=== PATIENT | male | born 1970 | race Caucasian/White ===

== ENCOUNTER → 2021-02-02 16:17 | Outpatient (CLI) | payer OTHER, SELFPAY ==
--- NOTE | 2021-02-02 | DI.RAD.S_ITS ---
PROCEDURE: XR KNEE LT 3V INDICATIONS: Left Knee Pain TECHNIQUE: 3 views of the knee were acquired. COMPARISON: None. FINDINGS: Bones: No fractures or dislocations. No suspicious bony lesions. No definite joint space narrowing. Soft tissues: No joint effusion. No suspicious soft tissue calcifications. IMPRESSION: Grossly unremarkable examination as above. If the patient's pain or other symptoms persist, consider further evaluation with MRI Dictated by: Panfilo Fuentes M.D. on 02/02/2021 at 16:54 Approved by: Panfilo Fuentes M.D. on 02/02/2021 at 16:54
== END ==
PROVIDERS: PCP Family Medicine; Referring Provider Family Medicine; Visit Provider Family Medicine
DX: M25.562 Pain in left knee (principal)
CPT/HCPCS: 73562

== ENCOUNTER → 2021-02-16 06:40 | Outpatient (CLI) | payer OTHER, SELFPAY ==
--- NOTE | 2021-02-16 | DI.MRI.S_ITS ---
PROCEDURE: MR KNEE LT WO CON INDICATIONS: LEFT KNEE PAIN TECHNIQUE: Noncontrast sagittal PD fast spin echo and T2 fast spin echo with fat saturation, sagittal 3-D FLASH with fat saturation; coronal T1 spin echo and PD fast spin echo with fat saturation, and axial PD fast spin echo with fat saturation through the knee. COMPARISON: [facility], CR, XR KNEE LT 3V, 02/02/2021, 16:20. FINDINGS: Image quality: Excellent. Menisci: Vague horizontally oriented high signal intensity traverses the posterior horn medial meniscus, demonstrating inferior articular surface extension, indicating oblique tearing. Lateral meniscus is intact. Cruciate ligaments: The anterior and posterior cruciate ligaments appear intact. Medial structures: The medial collateral ligament appears intact. Visualized portions of the pes anserinus tendons appear normal. No abnormal bursal fluid. Lateral structures: The lateral collateral ligament, long and short heads of the biceps femoris tendon appear intact. The popliteus tendon appears normal. Iliotibial band appears normal. Anterior structures: The quadriceps and patellar tendons appear intact. Patellar alignment is normal. No femoral trochlear dysplasia or ventral trochlear prominence. No edema in the infrapatellar fat pad. Bones and cartilage: No bone marrow contusions or fractures. There is mild articular cartilage loss diffusely overlying the weight-bearing aspects of the medial femoral condyle and medial tibial plateau. Articular cartilage fibrillation overlies the patellar apex. Joint space: There is physiologic knee joint fluid. No Steve's cyst. Normal appearing synovial plicae are incidentally noted. IMPRESSION: 1. Subtle tearing of the medial meniscus. 2. Medial and patellofemoral compartment articular cartilage loss. Dictated by: Ginny Goldberg M.D. on 02/16/2021 at 9:31 Approved by: Ginny Goldberg M.D. on 02/16/2021 at 9:33
== END ==
PROVIDERS: PCP Family Medicine; Referring Provider Family Medicine; Visit Provider Family Medicine
DX: S83.242A Other tear of medial meniscus, current injury, left knee, initial encounter (principal); M25.562 Pain in left knee
CPT/HCPCS: 73721

== ENCOUNTER → 2021-03-17 08:35 | Outpatient (CLI) | payer OTHER, SELFPAY ==
--- NOTE | 2021-03-17 | DI.RAD.S_ITS ---
PROCEDURE: FL SHOULDER INJECTION MR/CT LT INDICATIONS: LABRAL TEAR OF LONG HEAD OF LEFT BICEPS TENDON COMPARISON: [facility], SHOULDER INJECTION FOR MR/CT, 02/20/2007, 14:40. TECHNIQUE: The indications, alternatives, benefits, risks, and complications of the procedure were explained to the patient. Written informed consent was obtained and placed in the chart. The shoulder was examined fluoroscopically and a site for needle placement chosen for entry into the glenohumeral joint from an anterior approach. The skin was prepped and draped in a sterile fashion, and 1% lidocaine infiltrated from skin down to joint capsule. A spinal needle was inserted into the glenohumeral joint, and a small amount of iodinated contrast media injected to confirm intra-articular placement of the needle tip. This was followed by approximately 12 mL dilute solution of a gadolinium containing MR contrast agent. The needle was removed and a dressing was applied. The patient was given postprocedural instructions and sent to the MR suite for MR imaging. FINDINGS: A single fluoroscopic spot image demonstrates intra-articular location of injected iodinated contrast. IMPRESSION: Successful fluoroscopically guided administration of dilute Gadolinium solution into the shoulder joint for MR arthrogram. Dictated by: Panfilo Fuentes M.D. on 03/17/2021 at 10:10 Approved by: Panfilo Fuentes M.D. on 03/17/2021 at 10:11
--- NOTE | 2021-03-17 | DI.MRI.S_ITS ---
PROCEDURE: MR SHOULDER LT W CON INDICATIONS: LABRAL TEAR OF LONG HEAD OF LEFT BICEPS TENDON TECHNIQUE: After the administration of 12 mL of dilute intra-articular Gadolinium contrast, oblique coronal T1 and T2 spin echo with fat saturation, oblique sagittal T1 spin echo with and without fat saturation, oblique sagittal T2 fast spin echo with fat saturation, axial T1 spin echo with fat saturation through the shoulder. COMPARISON: None. FINDINGS: Image quality: Excellent. Rotator cuff: Tendinosis and low to moderate grade articular and bursal surface partial thickness tear involving distal supraspinatus at its insertion on humeral head is seen extending to musculotendinous junction. Distal infraspinatus tendinosis and low-grade articular surface partial-thickness tear is also seen. Distal subscapularis tendon is intact. No full-thickness rotator cuff tendon rupture. No rotator cuff muscle atrophy on sagittal images. Bones and bursae: No bone marrow contusions or fractures. Moderate acromioclavicular joint osteoarthritic changes are seen with downward osteophyte formation depressing on musculotendinous junction of supraspinatus.. Capsule and soft tissues: Focal area of signal abnormality and contrast extension in superior anterior labrum at 1 to 2 o'clock position is seen concerning for focal superior anterior labral tear. The glenohumeral ligaments are intact. The long head of the biceps tendon demonstrates normal location and morphology. The rotator interval appears normal, without fibrosis. The coracohumeral ligament is of normal thickness. No intra-articular bodies. IMPRESSION: 1. Tendinosis and low to moderate grade articular and bursal surface partial thickness tear involving distal supraspinatus extending to musculotendinous junction. Distal infraspinatus tendinosis and low-grade articular surface partial-thickness tear. No full-thickness rotator cuff tendon rupture. 2. Moderate acromioclavicular joint osteoarthritis. No fracture or dislocation. 3. Suggestion of focal superior anterior labral tear at 1 to 2 o'clock position. Dictated by: Juan Avila M.D. on 03/17/2021 at 12:05 Approved by: Juan Avila M.D. on 03/17/2021 at 12:09
== END ==
PROVIDERS: PCP Family Medicine; Referring Provider Orthopaedic Surgery; Visit Provider Orthopaedic Surgery
DX: S46.112A Strain of muscle, fascia and tendon of long head of biceps, left arm, initial encounter (principal); M75.112 Incomplete rotator cuff tear or rupture of left shoulder, not specified as traumatic; M19.012 Primary osteoarthritis, left shoulder
CPT/HCPCS: 23350; 73222; 77002

== ENCOUNTER → 2022-04-01 10:55 | Outpatient (CLI) | payer OTHER, SELFPAY ==
--- NOTE | 2022-04-01 | DI.RAD.S_ITS ---
PROCEDURE: XR KNEE RT 3V INDICATIONS: Pain in right knee TECHNIQUE: 3 views of the knee were acquired. COMPARISON: [facility], CR, XR KNEE LT 3V, 02/02/2021, 16:20. FINDINGS: Bones: No fractures or dislocations. No suspicious bony lesions. Mild tricompartmental periarticular osteophyte formation. Soft tissues: No joint effusion. No suspicious soft tissue calcifications. IMPRESSION: Osteoarthritis. No acute fracture. No osseous lesion. If symptoms and/or clinical suspicion for pathology persist, further assessment with repeat, or advanced imaging (e.g., CT, MRI, or bone scan) may be helpful for further assessment. Dictated by: Ginny oGldberg M.D. on 04/01/2022 at 13:35 Approved by: Ginny Goldberg M.D. on 04/01/2022 at 13:37
== END ==
PROVIDERS: PCP Family Medicine; Referring Provider Family Medicine; Visit Provider Family Medicine
DX: M25.561 Pain in right knee (principal); M17.11 Unilateral primary osteoarthritis, right knee
CPT/HCPCS: 73562

== ENCOUNTER → 2022-12-03 11:54 | Outpatient (CLI) | payer OTHER, SELFPAY ==
[2022-12-03 13:34] LABS: Alanine Aminotransferase 103 IU/L (<50); Albumin 4.9 g/dL (3.5-5.0); Albumin Globulin Ratio 1.4 (1.0-2.8); Alkaline Phosphatase 48 U/L (38-126); Aspartate Aminotransferase 59 IU/L (17-59); BUN Creatinine Ratio 26.8 (6-22); Bilirubin Total 0.7 mg/dL (0.2-1.3); Blood Urea Nitrogen 41 mg/dL (9-20); Calcium 8.9 mg/dL (8.4-10.2); Carbon Dioxide 25 mmol/L (22-32); Chloride 95 mmol/L (98-107); Estimated Glomerular Filt Rate 55 mL/min (>60); Globulin 3.5 g/dL (1.7-4.1); Glucose 96 mg/dL (70-100); HEMOLYSIS < 15 (0-50); Potassium 3.3 mmol/L (3.4-5.1); Sodium 135 mmol/L (137-145); Total Protein 8.4 g/dL (6.3-8.2)
== END ==
PROVIDERS: Registered Nurse; PCP Family Medicine; Referring Provider Family Medicine; Visit Provider Family Medicine
DX: N28.9 Disorder of kidney and ureter, unspecified (principal)
CPT/HCPCS: 36415; 80053

== ENCOUNTER 2024-07-24 14:56 | Day surgery (SDC) | payer OTHER, SELFPAY ==
--- NOTE | 2024-07-24 | PATH_ITS ---
[facility] Accession Number: [id number] No. of containers..02 Tissue . 01 Material submitted: . PART A: colon - CECAL POLYPS PART B: colon - DESCENDING COLON POLYP . 01 Diagnosis: A. CECAL POLYPS: Colonic mucosa with prominent benign lymphoid aggregate x1. Additional fragments of colonic mucosa with no evidence of neoplasm. . B. DESCENDING COLON POLYP: Tubular adenoma. BRET 07/26/2024 1125 Local . 01 Electronically signed: . Yuri Shaikh MD, PhD, Pathologist NPI- [id number] . 01 Gross description: . A. Received in formalin with two patient identifiers and cecal polyps, are three jaquez soft tissue fragments 0.3 to 0.4 cm in greatest dimension. Submitted in cassette A1. B. Received in formalin with two patient identifiers and descending colon polyp, are two jaquez soft tissue fragments 0.2 to 0.6 cm in greatest dimension. Submitted in cassette B1. ([id number]) /BRET 07/25/2024 1052 Local . 01 Pathologist provided ICD-10: D12.4 . 01 CPT . 746844, [id number] Specimen Comment: A courtesy copy of this report has been sent to [phone] Performed at: [address] [facility] [address], [place], [place] [id number] MD Patrice Turpin MD Phone: [phone]
[2024-07-24 15:14] VITALS: BP 132/92; PULSE 84; RESP 18; TEMP 36; O2SAT 96
[2024-07-24] MEDS: SODIUM CHLORIDE 0.9% 1,000 ML 84 ML IV (15:20)
--- NOTE | 2024-07-24 15:39 | PM.HP.1 ---
History of Present Illness History of Present Illness Date Patient Seen: 07/24/24 Time Patient Seen: 15:40 Chief complaint: Colonoscopy Narrative: Tyrel is a 53-year-old man here for his first screening colonoscopy. No family history of colon cancer. REPLACED BY [facility] Social History Smoking Status: Never smoker alcohol intake: current Meds Home Medications and Allergies Home Medications Medication Instructions Recorded Confirmed Type diltiazem HCl 180 mg 180 mg PO DAILY 07/24/24 07/24/24 History capsule,extended release 24 hr hydrochlorothiazide 25 mg tablet 25 mg PO DAILY 07/24/24 07/24/24 History omeprazole 40 mg capsule,delayed 40 mg PO DAILY 07/24/24 07/24/24 History release Allergies Allergy/AdvReac Type Severity Reaction Status Date / Time morphine [MORPHINE] Allergy Unknown Verified 07/24/24 15:08 Exam Vital Signs (past 8 hours): - 07/24/24 15:14 Temperature 96.8 F L Pulse Rate 84 Respiratory Rate 18 Blood Pressure 132/92 H Pulse Oximetry 96 Oxygen Delivery Method Room Air Oxygen Delivery Method Room Air Const General: No acute distress Resp Effort & Inspection: normal respiratory effort Assessment & Plan Assessment and plan (1) Colon cancer screening: Status: Acute Plan Colonoscopy Time-Based Coding :: [TOTAL MINUTES] spent with patient and on the chart (including review of chart, obtaining history, exam, reviewing outside data, placing orders, documenting exam and treatment plan, and counseling patient) on [DATE].
--- NOTE | 2024-07-24 16:12 | P.OP.COLON_ITS ---
Operative Date/Time/Diagnoses Date of procedure: 07/24/24 Time of procedure: 16:12 Pre-op diagnosis: Colon cancer screening Post-op diagnosis: same Procedure & Clinicians Study performed: Colonoscopy Same procedure as scheduled: Yes Surgeon: Tristin Montez Procedure Notes Procedure in detail: Surgeon: Tristin Montez MD Anesthesia: Aletha Collado DO Procedure: The patient was brought to the endoscopy suite, placed in left lateral decubitus position. The patient was connected to monitoring devices. A time-out was performed. Sedation was administered. Once the patient was adequately sedated, a digital rectal exam was performed and was normal. The scope was then inserted and advanced to the cecum where the appendiceal orifice was identified and photographed. The scope was then slowly withdrawn over greater than 6 minutes. The mucosa was thoroughly inspected. There were 3 sma ll polyps in the cecum, each about 2 mm, removed with the Jumbo forceps and sent together. There was a 7 mm polyp in the descending colon removed with a cold snare. The scope was retroflexed in the rectum. No other abnormalities were found. The scope was straightened and removed. The patient was awakened and brought to recovery. Scope withdrawal time: 12 minutes Sedation time: 17 minutes EBL: 3 mL Findings: 3 small cecal polyps and 7 mm polyp in the descending colon Post-procedure Disposition: PACU
[2024-07-24 16:13] VITALS: BP 100/69; PULSE 83; RESP 16; TEMP 36.3; O2SAT 97
[2024-07-24 16:19] VITALS: BP 128/73; PULSE 82; RESP 24; O2SAT 94
[2024-07-24 16:24] VITALS: BP 115/78; PULSE 80; RESP 18; TEMP 36.6; O2SAT 98
[2024-07-24 16:26] VITALS: BP 116/78; PULSE 75; RESP 16; O2SAT 98
== END 2024-07-24 16:35 | disposition home or self-care (01) ==
PROVIDERS: PCP Family Medicine; Referring Provider Surgery; Visit Provider Surgery
PROC: 0DJD8ZZ Inspection of Lower Intestinal Tract, Via Natural or Artificial Opening Endoscopic (ICD-10-PCS; CPT 45378; principal; 2024-07-24 16:15)
DX: Z12.11 Encounter for screening for malignant neoplasm of colon (principal); D12.4 Benign neoplasm of descending colon; K63.5 Polyp of colon; I10 Essential (primary) hypertension; K21.9 Gastro-esophageal reflux disease without esophagitis
CPT/HCPCS: 45385; 45380; J2704